=== PATIENT | female | born 1945 | race Caucasian/White ===

== ENCOUNTER → 2018-01-07 16:46 | Outpatient (CLI) | payer MEDICARE, BC ==
[2014-01-05 10:23] VITALS: BMI 25.2
[~2018-01-07 16:46] MED LIST: FLUTICASONE PRO16 GM NS; HYDROCODONE-APA1 TAB PO; NORCO 10/325 TA1 TA1 PO; OSTEOMATRIX; VITAMIN D2000 UNIT PO; VITAMIN D31000 UNI2 PO; [UNRECOGNIZED DRUG - CODE]; [UNRECOGNIZED DRUG - OTHER]
== END | disposition home or self-care (01) ==
LOC: D.RAD 16:46
DX: M54.2 Cervicalgia (principal)